=== PATIENT | female | born 1935 | race Caucasian/White ===

== ENCOUNTER 2019-05-26 19:20 | Inpatient (IN) | payer MEDICARE, BC, MEDICAID, OTHER ==
[~2019-05-26] VITALS: Ht 165.1 cm; Wt 86.6 kg
--- NOTE | ~2019-05-26 | CON ---
[address] [address] CONSULTATION Name: ALVINA VILLARREAL Room: [address] IN [facility]#: [id number] Admission: 05/26/19 Attend Phys: Cal Huertas, Discharge: Date of : 35 Report #: [id number] THIS REPORT FOR: //name// CC: LENI physician/PCP Cal Huertas DATE OF SERVICE: 05/27/2019 REQUESTING PHYSICIAN: Cal Huertas MD REASON FOR CONSULTATION: Acute kidney injury. HISTORY OF PRESENT ILLNESS: The patient is an 83-year-old female transferred here from assisted facility due to hypotension. She was found to be also hyperglycemic. Her blood pressure was in 80s and she was admitted to the hospital. She was also found to be in acute kidney injury with serum creatinine of 2.8. Her creatinine was 1.5 several years ago do not know what her creatinine now because in fact the creatinine level could be her baseline. PAST MEDICAL HISTORY: Significant for; 1. Diabetes mellitus type 2. 2. Chronic kidney disease stage 3. 3. Obesity. 4. Medical noncompliance. The patient is noncompliant with her diet. She told me that apparently she notified her doctors that she would not be compliant with the diet. She also has history of hypertension, very mild. 5. She also has right mastectomy and left breast lumpectomy. She has never seen a deicer repairer pneumatic. SOCIAL HISTORY: [facility] resident. No tobacco. No alcohol abuse. FAMILY HISTORY: Noncontributory to her age. MEDICATIONS: Prior to admission reviewed. From my standpoint, she was on lisinopril 2.5 mg daily and she was also on p.r.n. diclofenac. She is receiving also furosemide and metformin. REVIEW OF SYSTEMS: No acute distress. No chest pain, no shortness of breath, no nausea, no vomiting. She states that nursing room ____ right now. PHYSICAL EXAMINATION: GENERAL: Awake, alert, oriented. VITAL SIGNS: Blood pressure 118/55, heart rate 61, afebrile. HEENT: Pupils are round. NECK: [place] [address] CONSULTATION Name: ALVINA VILLARREAL Room: [address] IN [facility]#: [id number] Admission: 05/26/19 Attend Phys: Cal Huertas, Discharge: Date of : 35 Report #: [id number] LUNGS: Fairly clear. CARDIOVASCULAR: Regular rate. ABDOMEN: Soft. LOWER EXTREMITIES: Trace edema. LABORATORY DATA: Report from yesterday evening revealed hemoglobin 9.4, serum sodium 138, potassium 3.8, chloride 101, carbon dioxide 30, BUN 59, creatinine 2.8. Her blood sugar was actually 30. ASSESSMENT: 1. Uncontrolled diabetes with a wild swings in her blood sugar. The patient is noncompliant with her diabetic diet. 2. Acute kidney injury, probably because of hypotension. 3. Chronic kidney disease stage 3, most likely due to diabetic nephropathy. 4. Osteoarthritis. PLAN: 1. I agree with some fluids, but would increase it too much, we will probably stop it for now after current ____ in. 2. Avoid LAISHA inhibitor and angiotensin receptor blockers. 3. We will check her labs in the morning. 4. Obtain a renal ultrasound. 5. Discussed importance of being compliant with diabetic diet. By: [id number] Ventura MD /nt
[~2019-05-26 19:20] MED LIST: ACETAMINOPHEN325 M1; ARTIFICIAL TEA1 EACH; ARTIFICIAL TEAR15 M1 OPHTHALMIC; BACTRIM DS TAB1 EACH PO; BASAGLAR K100 UNIT/1 SUBQ; CALCIUM 500 +1 EAC5 PO; CHILDREN'S ASPI81 M1 PO; CLARITIN10 MG PO; DIFLUCAN200 MG PO; DUONEB 2.5-0.5 M3 ML INH; GABAPENTIN 100100 MG PO; IBUPROFEN 200200 M1 PO; INVANZ1 GM IM; K-DUR 20 MEQ T20 MEQ; KETOCONAZOLE60 GM TOP; LANTUS SOL100 UNIT/1 SUBQ; LASIX 40 MG TAB40 M2 PO; LISINOPRIL2.5 MG PO; MAGNESIUM OXID400 MG PO; METFORMIN HCL500 MG PO; MOM PO; NORCO 5-325 TA1 EACH PO; NOVOLOG100 UNIT/1 SUBQ; NYSTATIN15 G2 TOP; OSELB75 PO; OXYBUTYNIN 5 MG5 M2 PO; OXYBUTYNIN CHLO10 MG PO; OYSTER SHELL 51 EACH; POTASSIUM20 PO; PRANDIN0.5 MG; PRANDIN1 MG PO; ROBITUSSIN100 MG/53 PO; SOY ISOFLAVONES40 MG PO; TAMIFLU75 MG; TRAMADOL 50 MG50 MG PO; TRIAMCINOLONE A80 G2 TOP; TUMS PO; TYLENOL325 MG PO; VITAMIN D3400 UNI1 PO; VITAMIN D3400 UNI2; VOLTAREN100 GM TOP
[2019-05-26 19:26] VITALS: BP 114/34
[2019-05-26] MEDS ORDERED: ZANAFLEX2 M1 PO (19:42)
[2019-05-26] MEDS ORDERED: PROLOPRIM100 MG PO (19:43)
[2019-05-26] MEDS ORDERED: OXYBUTYNIN CHLO10 MG PO (19:43)
[2019-05-26] MEDS ORDERED: FLONASE 0.05%50 MCG NARES (19:44)
[2019-05-26] MEDS ORDERED: MELATONIN3 M1 PO (19:44)
[2019-05-26] MEDS ORDERED: TUSSIN100 MG/5 M PO (19:45)
[2019-05-26] MEDS ORDERED: ZYRTEC10 M5 PO (19:46)
[2019-05-26] MEDS ORDERED: GUAIFENESIN DM1 EACH PO (19:46)
[2019-05-26] MEDS ORDERED: CHILDREN'S ASPI81 MG PO (19:46)
[2019-05-26] MEDS ORDERED: PRANDIN1 MG PO (19:47)
[2019-05-26] MEDS ORDERED: CRANBERRY450 M1 PO (19:47)
[2019-05-26] MEDS ORDERED: MAG-OXIDE400 MG PO (19:48)
[2019-05-26] MEDS ORDERED: TRULICITY0.75 MG/0. SUBQ (19:48)
[2019-05-26] MEDS ORDERED: XARELTO20 MG PO (19:48)
[2019-05-26 20:07] LABS: ABSOLUTE EOSINOPHILS 0.2 thou/uL (0.0-0.7); ABSOLUTE LYMPHOCYTES 1.1 thou/uL (0.8-5.3); ABSOLUTE MONOCYTES 0.5 thou/uL (0.0-1.2); BASOPHILS 0.6 %; EOSINOPHILS 2.6 %; HEMATOCRIT 28.1 % (37.0-47.0); HEMOGLOBIN 9.4 gm/dL (12.0-15.0); LYMPHOCYTES 14.3 %; MCH 31.3 pg (26.0-34.0); MCHC 33.6 g/dL (28.0-37.0); MCV 93.1 fL (80.0-100.0); MONOCYTES 6.1 %; MPV 7.6 fl. (7.2-11.1); NUCLEATED RBCS 0 /100WBC; PLATELET COUNT* 270 thou/uL (150-400); POLYS 76.4 %; RBC 3.02 mil/uL (4.20-5.00); RDW-CV 15.4 % (10.5-14.5); WBC 7.9 thou/uL (4.0-11.0)
[2019-05-26 20:23] LABS: INR 1.4; PROTIME 14.5 Seconds (9.20-11.50)
[2019-05-26 20:30] LABS: CALCIUM 8.7 mg/dL (8.5-10.1); CREATININE 2.8 mg/dL (0.6-1.3); POTASSIUM 3.8 mmol/L (3.5-5.1)
[2019-05-26 20:31] LABS: ALBUMIN 2.9 g/dL (3.4-5.0); TOTAL BILIRUBIN 0.2 mg/dL (<0.1-1.0); TOTAL PROTEIN 6.7 g/dL (6.4-8.2)
[2019-05-26] MEDS ORDERED: ZOFRAN ODT4 MG PO (21:42)
[2019-05-26] MEDS ORDERED: COMPAZINE10 MG PO (21:42)
--- NOTE | 2019-05-26 22:00 | NUR ---
PATIENT REFUSED CASTRO CATHETER PLACEMENT.
[2019-05-26 23:43] LABS: URINE BILIRUBIN NEGATIVE (Negative); URINE BLOOD NEGATIVE (Negative); URINE CLARITY CLEAR; URINE COLOR YELLOW; URINE GLUCOSE-RANDOM NEGATIVE (Negative); URINE KETONES NEGATIVE (Negative); URINE LEUKOCYTES-REFLEX NEGATIVE (Negative); URINE NITRITE-REFLEX NEGATIVE (Negative); URINE PROTEIN NEGATIVE (Negative); URINE UROBILINOGEN 0.2 E.U./dl (0.2-1.0)
[2019-05-27] VITALS (33 sets, daily range): BP systolic 87–149; BP diastolic 37–100
--- NOTE | 2019-05-27 05:00 | NUR ---
PT TO ICU #2 ACCOMPANIED BY RN AND ON THE MONITOR. A$Ox4, COMPLAINS OF BACK PAIN THAT SHE REPORTS IS CHRONIC. HEAT PACK PROVIDED. 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 ON 3L O2 PER NC. BLOOD SUGAR SLOWLY STABILIZING. OTHERWISE UNEVENTFUL NIGHT. PT PREFERS TO LAY ON HER LEFT SIDE AND REFUSES TURNS. CALL LIGHT WITHIN REACH. WILL CONTINUE MONITORING.
--- NOTE | 2019-05-27 10:37 | NUR ---
ISOLATION SARMAD'uriel, COLTON INFECTION CONTROL NURSE NOTIFIED. NO ACTIVE SIGNS OF INFECTION THIS ADMIT.
--- NOTE | 2019-05-27 10:38 | EKG ---
[place] [address] ELECTROCARDIOGRAM REPORT Name: ALVINA VILLARREAL Room: [address] IN ..#: [id number] Admission: 05/26/19 Attend Phys: Cal Huertas, Discharge: Date of : 35 Report #: [id number] THIS REPORT FOR: //name// [facility] ED Test Date: 2019-05-26 Test Time: 19:29:24 Pat Name: ALVINA VILLARREAL Department: Room: [facility] Gender: F Baffle Installer: [place] : 1935 Requested By: Ambreen Gillis Order Number: [id number] MD: Luca Coronado Measurements Intervals [place] Rate: 77 P: -86 MT: 292 QRS: 25 QRSD: 73 T: 42 QT: 464 QTc: 526 Interpretive Statements Sinus or ectopic atrial rhythm Sinus pause Prolonged MT interval Low voltage, extremity leads Prolonged QT interval Compared to ECG 11/20/2014 22:41:32 Sinus pause noted Low QRS voltage now present Prolonged QT interval now present Sinus tachycardia no longer present Electronically Signed On 05-27-2019 10:37:55 COUPON AND BOND COLLECTION CLERK by Luca Coronado [email or web address] <ELECTRONICALLY SIGNED> By: Luca Coronado MD, FACC 05/27/19 1037 28 28 Luca Coronado MD, FAC /EPI
[2019-05-27 11:06] LABS: CALCIUM 8.1 mg/dL (8.5-10.1); CREATININE 2.1 mg/dL (0.6-1.3); POTASSIUM 4.2 mmol/L (3.5-5.1)
--- NOTE | 2019-05-27 12:41 | NUR ---
ICU rounds: 2nd degree heartblock, Cardiology following. Iso for ESBL. Possible med/tele status. Pt is A&O. Resides at [facility]. Pt is wc bound, able to stand and pivot self and propel her wc. Pt is a DNR. Niece is DPOA and in room with Pt. Goal is to return to [facility] at dc. Following.
--- NOTE | 2019-05-27 16:11 | 2DMMODE ---
[place] [address] 2 D/M-MODE ECHOCARDIOGRAM Name: ALVINA VILLARREAL Room: [address] IN [facility]#: [id number] Admission: 05/26/19 Attend Phys: Cal Ruiz Discharge: Date of : 35 Date of Service: 05/27/19 1611 Report #: [id number] THIS REPORT FOR: //name// APPROVED REPORT Study performed: 05/27/2019 14:34:26 EXAM: Comprehensive 2D, Doppler, and color-flow Echocardiogram Patient Location: In-Patient Room #: [facility] Status: routine BSA: 1.94 HR: 67 bpm BP: 130/50 mmHg Rhythm: Atrial Fibrillation Other Information Study Quality: Good Indications Abnormal ECG 2D Dimensions IVSd: 12.23 (7-11mm) LVOT Diam: 19.05 (18-24mm) LVDd: 35.80 mm PWd: 11.19 (7-11mm) Ascending Ao: 32.76 (22-36mm) LVDs: 24.04 (25-40mm) Aortic Root: 34.77 mm Volumes Left Atrial Volume (Systole) LA ESV Index: 28.70 mL/m2 Aortic Valve AoV Peak Son.: 1.39 m/s AO Peak Gr.: 7.70 mmHg LVOT Max P.98 mmHg AO Mean Gr.: 4.50 mmHg LVOT Mean P.05 mmHg LVOT Max V: 1.12 m/s AO V2 VTI: 30.39 cm LVOT Mean V: 0.83 m/s ROSSY (VTI): 2.08 cm2 LVOT V1 VTI: 22.21 cm TDI Lateral E' Son.: 0.13 m/[place] [address] 2 D/M-MODE ECHOCARDIOGRAM Name: ALVINA VILLARREAL Room: [address] IN [facility]#: [id number] Admission: 05/26/19 Attend Phys: Cal Ruiz Discharge: Date of : 35 Date of Service: 05/27/19 1611 Report #: [id number] PV Peak Son.: 1.17 m/s PV Peak Gr.: 5.51 mmHg Tricuspid Valve RAP Estimate: 5.00 mmHg TR Peak Gr.: 30.79 mmHg RVSP: 35.00 mmHg PA Pressure: 35.00 mmHg Left Ventricle The left ventricle is normal size. There is normal LV segmental wall motion. There is normal left ventricular wall thickness. Left ventricular systolic function is normal. The left ventricular ejection fraction is within the normal range. LVEF is 65%. This study is not technically sufficient to allow evaluation of the LV diastolic function due to atrial fibrillation. Right Ventricle The right ventricle is normal size. The right ventricular systolic function is normal. Atria The left atrium size is normal. The right atrium size is normal. Aortic Valve Moderate aortic valve sclerosis. No aortic regurgitation is present. No hemodynamically significant valvular aortic stenosis. Mitral Valve There is mitral annular calcification. Trace mitral regurgitation. No evidence of mitral valve stenosis. Tricuspid Valve The tricuspid valve is normal in structure. Trace tricuspid regurgitation. Mild pulmonary hypertension. Pulmonic Valve The pulmonary valve is normal in structure. There is no pulmonic valvular regurgitation. Great Vessels The aortic root is normal in size. IVC is normal in size and collapses >50% with inspiration. Pericardium There [place] [address] 2 D/M-MODE ECHOCARDIOGRAM Name: ALVINA VILLARREAL Room: [address]#: [id number] Admission: 05/26/19 Attend Phys: Cal Ruiz Discharge: Date of : 35 Date of Service: 05/27/19 1611 Report #: [id number] <Conclusion> The left ventricle is normal size. There is normal left ventricular wall thickness. Left ventricular systolic function is normal. The left ventricular ejection fraction is within the normal range. LVEF is 65%. This study is not technically sufficient to allow evaluation of the LV diastolic function due to atrial fibrillation. The right ventricle is normal size. The left atrium size is normal. Moderate aortic valve sclerosis. No aortic regurgitation is present. No hemodynamically significant valvular aortic stenosis. There is mitral annular calcification. Trace mitral regurgitation. No evidence of mitral valve stenosis. The tricuspid valve is normal in structure. IVC is normal in size and collapses >50% with inspiration. There is no pericardial effusion. There is normal LV segmental wall motion. <ELECTRONICALLY SIGNED> By: Luca Coronado MD, FACC 05/27/19 161 161 161 Luca Coronado MD, FACC /INF
--- NOTE | 2019-05-27 17:49 | NUR ---
PT A&O x4. 2ND DEGREE BLOCK, TYPE 1, VSS. BLOOD SUGAR MAINTAINED. ONE BAG OF NS COMPLETED AT 100 MLS/HR. TOLERATING DIET. INSULIN PER SLIDING SCALE. GETS UP TO THE BSC, ASSIST x1. GOOD URINE OUTPUT.
[2019-05-28 00:42] VITALS: BP 134/41
[2019-05-28 04:00] VITALS: BP 128/43
--- NOTE | 2019-05-28 05:17 | NUR ---
RECEIVED PT FROM ICU PER WHEELCHAIR, AT APPROX 1940 ACCOMPANIED BY CADEN CLEMENTS. PT IS AWAKE AND ORIENTED X4. VSS ON ROOM AIR. WIGS SALESPERSON IN PLACE TRACING SR WITH 2nd deg AVB type I. PT C/O BACK PAIN RELEIVED BY PAIN MEDS GIVEN PER SEP. PT IS ABLE TO SLEEP MOST OF THE NIGHT. CALL LIGHT WITHIN REACH. HOURLY ROUNDING DONE FOR PT SAFETY.
[2019-05-28 05:39] LABS: ALBUMIN 2.5 g/dL (3.4-5.0); CALCIUM 8.4 mg/dL (8.5-10.1); CREATININE 1.6 mg/dL (0.6-1.3); POTASSIUM 4.1 mmol/L (3.5-5.1); TOTAL BILIRUBIN 0.4 mg/dL (<0.1-1.0); TOTAL PROTEIN 5.9 g/dL (6.4-8.2)
[2019-05-28 11:30] VITALS: BP 137/54
[2019-05-28 16:00] VITALS: BP 137/44
--- NOTE | 2019-05-28 17:57 | NUR ---
pt up to chair with all meals, had very large solid bowel movement this afternoon, pain medications given prn as ordered for pain.
[2019-05-28 20:00] VITALS: BP 135/50
[2019-05-29] VITALS: BP 123/42
--- NOTE | 2019-05-29 02:58 | NUR ---
ASSUMED PT CARE AT APPROX 1930. PT IS AWAKE AND ORIENTED X4. VSS ON ROOM AIR. REMOTE COMPUTER TERMINAL OPERATOR IN PLACE TRACING SR w/ 1st DEG AVB. ASSESSMENT DONE AND CHARTED. PT C/O BACK PAIN RELEIVED BY PAIN MEDS GIVEN PER SEP. CALL LIGHT WITHIN REACH. FALL PRECAUTIONS IN PLACE. HOURLY ROUNDING DONE FOR PT SAFETY.
[2019-05-29 04:00] VITALS: BP 117/40
[2019-05-29 08:00] VITALS: BP 132/74
[2019-05-29 10:57] LABS: HEMATOCRIT 25.2 % (37.0-47.0); HEMOGLOBIN 8.2 gm/dL (12.0-15.0); MCH 30.9 pg (26.0-34.0); MCHC 32.7 g/dL (28.0-37.0); MCV 94.3 fL (80.0-100.0); RBC 2.67 mil/uL (4.20-5.00); RDW-CV 15.7 % (10.5-14.5); WBC 7.9 thou/uL (4.0-11.0)
[2019-05-29 11:08] LABS: CALCIUM 8.6 mg/dL (8.5-10.1); CREATININE 1.4 mg/dL (0.6-1.3)
[2019-05-29 12:00] VITALS: BP 133/56
--- NOTE | 2019-05-29 13:15 | NUR ---
pt discharing back to [facility] facility. cm set up transportation through [facility] to arrive at 3p (time given by nurse). pt niece was present and notified by pt's nurse that pt is d/c'g back to [facility] today. cm provide pt's nurse the number to call report - [phone].
[2019-05-29 15:21] VITALS: BP 133/56
--- NOTE | 2019-05-29 16:00 | NUR ---
REPORT CALLED TO RUBEN AT [facility]. PT LEFT VIA WC WITH ALL BELONGINGS
== END 2019-05-29 16:00 | DRG 177 ==
LOC: M.ERS 19:20 → M.TBA-ER 22:18 → M.ICU 22:18 → M.2W 05-27 19:40
PROVIDERS: Emergency Medicine; Internal Medicine; ADMIT Family Medicine
DX: J15.6 Pneumonia due to other Gram-negative bacteria (principal); E11.10 Type 2 diabetes mellitus with ketoacidosis without coma; N17.9 Acute kidney failure, unspecified; I13.0 Hypertensive heart and chronic kidney disease with heart failure and stage 1 through stage 4 chronic kidney disease, or unspecified chronic kidney disease; I44.1 Atrioventricular block, second degree; I95.9 Hypotension, unspecified; M19.90 Unspecified osteoarthritis, unspecified site; E11.649 Type 2 diabetes mellitus with hypoglycemia without coma; E11.22 Type 2 diabetes mellitus with diabetic chronic kidney disease; N18.3 Chronic kidney disease, stage 3 (moderate); E66.9 Obesity, unspecified; I50.9 Heart failure, unspecified; Z91.14 Patient's other noncompliance with medication regimen; Z79.4 Long term (current) use of insulin; Z90.710 Acquired absence of both cervix and uterus; Z90.49 Acquired absence of other specified parts of digestive tract; Z90.11 Acquired absence of right breast and nipple; Z68.31 Body mass index [BMI] 31.0-31.9, adult; Z87.891 Personal history of nicotine dependence

== ENCOUNTER 2019-06-10 14:49 | Inpatient (IN) | payer MEDICARE, BC, MEDICAID, OTHER ==
[~2019-06-10] VITALS: Ht 165.1 cm; Wt 77.7 kg
[~2019-06-10 14:49] MED LIST changes: +CHILDREN'S ASPI81 MG PO; +COMPAZINE10 MG PO; +CRANBERRY450 M1 PO; +FLONASE 0.05%50 MCG NARES; +GUAIFENESIN DM1 EACH PO; +MAG-OXIDE400 MG PO; +MELATONIN3 M1 PO; +PROLOPRIM100 MG PO; +TRULICITY0.75 MG/0. SUBQ; +TUSSIN100 MG/5 M PO; +XARELTO20 MG PO; +ZANAFLEX2 M1 PO; +ZOFRAN ODT4 MG PO; +ZYRTEC10 M5 PO
[2019-06-10 14:50] VITALS: BP 152/69
[2019-06-10] MEDS ORDERED: VITAMIN D32000 UNIT PO (14:58)
[2019-06-10] MEDS ORDERED: BISACODYL10 MG RECTAL (15:00)
[2019-06-10] MEDS ORDERED: LASIX 80 MG TAB80 MG PO (15:01)
[2019-06-10] MEDS ORDERED: TOLNAFTATE TOP (15:06)
[2019-06-10] MEDS ORDERED: OMEPRAZOLE 20 M20 M1 PO (15:08)
[2019-06-10] MEDS ORDERED: LASIX 40 MG TAB40 MG PO (15:10)
[2019-06-10] MEDS ORDERED: PROLOPRIM100 MG PO (15:11)
[2019-06-10] MEDS ORDERED: CRANBERRY450 M2 PO (15:13)
[2019-06-10 15:39] LABS: ABSOLUTE BASOPHILS 0.1 thou/uL (0.0-0.2); ABSOLUTE EOSINOPHILS 0.2 thou/uL (0.0-0.7); ABSOLUTE LYMPHOCYTES 1.2 thou/uL (0.8-5.3); ABSOLUTE MONOCYTES 0.5 thou/uL (0.0-1.2); ABSOLUTE NEUTROPHILS 7.1 thou/uL (1.6-8.1); BASOPHILS 0.7 %; EOSINOPHILS 2.4 %; HEMATOCRIT 32.7 % (37.0-47.0); HEMOGLOBIN 10.9 gm/dL (12.0-15.0); LYMPHOCYTES 13.1 %; MCH 30.8 pg (26.0-34.0); MCHC 33.3 g/dL (28.0-37.0); MCV 92.3 fL (80.0-100.0); MONOCYTES 5.1 %; MPV 7.1 fl. (7.2-11.1); NUCLEATED RBCS 0 /100WBC; PLATELET COUNT* 390 thou/uL (150-400); POLYS 78.7 %; RBC 3.54 mil/uL (4.20-5.00); RDW-CV 15.4 % (10.5-14.5)
[2019-06-10 15:45] LABS: APTT 46.5 Seconds (25.0-31.3); CALCIUM 8.6 mg/dL (8.5-10.1); CREATININE 1.9 mg/dL (0.6-1.3); INR 1.3; POTASSIUM 4.9 mmol/L (3.5-5.1); PROTIME 13.6 Seconds (9.20-11.50)
[2019-06-10 16:02] LABS: ALBUMIN 3.1 g/dL (3.4-5.0); TOTAL BILIRUBIN 0.3 mg/dL (<0.1-1.0); TOTAL PROTEIN 7.3 g/dL (6.4-8.2)
[2019-06-10 16:52] LABS: URINE BILIRUBIN NEGATIVE (Negative); URINE BLOOD 1+ (Negative); URINE CLARITY CLEAR; URINE COLOR YELLOW; URINE GLUCOSE-RANDOM NEGATIVE (Negative); URINE KETONES NEGATIVE (Negative); URINE NITRITE-REFLEX NEGATIVE (Negative); URINE PROTEIN NEGATIVE (Negative); URINE SPECIFIC GRAVITY 1.015 (1.005-1.030); URINE UROBILINOGEN 0.2 E.U./dl (0.2-1.0)
[2019-06-10 16:53] LABS: URINE LEUKOCYTES-REFLEX 2+ (Negative)
[2019-06-10 17:03] LABS: BACTERIA-REFLEX >30 Many /HPF (None Seen); HYALINE CASTS 0-3 Few /LPF (None Seen); MUCUS None Seen strn/LPF (None Seen); SQUAMOUS 4-10 Moderate /LPF (0-3); URINE WBC-REFLEX 6-15 Few /HPF (0-5)
[2019-06-10 17:04] LABS: CRYSTALS None Seen /LPF (None Seen); URINE RBC 0-2 Rare /HPF (0-2)
[2019-06-10 18:54] VITALS: BP 145/85
[2019-06-10 21:17] VITALS: BP 139/49
[2019-06-11] VITALS: BP 121/65
[2019-06-11 04:00] VITALS: BP 151/62
[2019-06-11 07:40] VITALS: BP 173/61
--- NOTE | 2019-06-11 10:29 | EKG ---
[place] [address] ELECTROCARDIOGRAM REPORT Name: ALVINA VILLARREAL Room: [address] IN [facility]#: [id number] Admission: 06/10/19 Attend Phys: Adarsh Sage MD Discharge: Date of : 35 Report #: [id number] THIS REPORT FOR: //name// [facility] ED Test Date: 2019-06-10 Test Time: 15:04:51 Pat Name: ALVINA VILLARREAL Department: Room: [facility] Gender: F Processing Talc And Borate Supervisor: MUSA : 1935 Requested By: Sudarshan Henderson Order Number: [id number] MD: Luca Coronado Measurements Intervals [place] Rate: 73 P: -37 NJ: 308 QRS: 4 QRSD: 76 T: 38 QT: 414 QTc: 457 Interpretive Statements Sinus rhythm Prolonged [place] interval Compared to ECG 05/26/2019 19:29:24 Ectopic atrial rhythm no longer present Sinus pause or arrest no longer present Prolonged QT interval no longer present Electronically Signed On 06-11-2019 10:29:05 CHIEF DEPUTY CORONER by Luca Coronado [email or web address] <ELECTRONICALLY SIGNED> By: Luca Coronado MD, FACC 06/11/19 1029 1504 1504 Luca Coronado MD, [facility] /EPI
[2019-06-11 12:00] VITALS: BP 129/54
[2019-06-11 16:04] VITALS: BP 107/40
[2019-06-11 20:00] VITALS: BP 99/55
[2019-06-12] VITALS: BP 134/53
[2019-06-12 04:00] VITALS: BP 164/65
[2019-06-12 05:00] LABS: HEMATOCRIT 29.9 % (37.0-47.0); HEMOGLOBIN 9.7 gm/dL (12.0-15.0); MCH 29.8 pg (26.0-34.0); MCHC 32.4 g/dL (28.0-37.0); MCV 92.1 fL (80.0-100.0); MPV 8.2 fl. (7.2-11.1); RBC 3.24 mil/uL (4.20-5.00); RDW-CV 15.3 % (10.5-14.5); WBC 7.1 thou/uL (4.0-11.0)
[2019-06-12 05:17] LABS: CALCIUM 8.5 mg/dL (8.5-10.1); CREATININE 1.7 mg/dL (0.6-1.3); POTASSIUM 4.7 mmol/L (3.5-5.1)
[2019-06-12 08:00] VITALS: BP 138/66
[2019-06-12 11:39] VITALS: BP 142/50
[2019-06-12 16:53] VITALS: BP 97/49
[2019-06-12 20:00] VITALS: BP 137/55
[2019-06-13] VITALS: BP 98/56
[2019-06-13 04:00] VITALS: BP 138/52
[2019-06-13 05:39] LABS: CALCIUM 8.9 mg/dL (8.5-10.1); CREATININE 1.7 mg/dL (0.6-1.3); MAGNESIUM 2.6 mg/dL (1.8-2.4); POTASSIUM 4.3 mmol/L (3.5-5.1)
[2019-06-13 07:45] VITALS: BP 124/35
[2019-06-13 12:00] VITALS: BP 113/44
[2019-06-13 16:00] VITALS: BP 124/98
[2019-06-13 20:00] VITALS: BP 133/59
[2019-06-14 04:00] VITALS: BP 110/62
[2019-06-14 08:00] VITALS: BP 112/70
[2019-06-14 11:44] VITALS: BP 121/56
[2019-06-14 16:49] VITALS: BP 152/59
[2019-06-14 20:00] VITALS: BP 151/65
[2019-06-15] VITALS: BP 130/50
[2019-06-15 04:00] VITALS: BP 149/57
[2019-06-15 08:00] VITALS: BP 144/64
[2019-06-15 16:29] VITALS: BP 126/66
[2019-06-15 20:00] VITALS: BP 144/49
[2019-06-16 08:03] VITALS: BP 151/77
[2019-06-16 15:47] VITALS: BP 156/77
[2019-06-16 20:43] VITALS: BP 130/73
[2019-06-17 07:50] VITALS: BP 164/79
[2019-06-17] MEDS ORDERED: SIMETHICON CHEW80 M1 PO (07:51)
[2019-06-17] MEDS ORDERED: TRAMADOL 50 MG50 MG PO (07:51)
[2019-06-17] MEDS ORDERED: MIRALAX17 GM PO (07:51)
[2019-06-17] MEDS ORDERED: DOK PLUS TABLE1 EACH PO (07:51)
[2019-06-17] MEDS ORDERED: PAIN RELIEVER500 MG PO (07:51)
[2019-06-17] MEDS ORDERED: GABAPENTIN 100100 MG PO (07:51)
[2019-06-17] MEDS ORDERED: LIDOPATCH1 EACH TOP (07:51)
[2019-06-17] MEDS ORDERED: CALCIUM + D3 E1 EACH PO (07:56)
[2019-06-17] MEDS ORDERED: FOSAMAX 70 MG T70 MG PO (07:56)
[2019-06-17] MEDS ORDERED: PREMARIN30 GM TOP (08:01)
[2019-06-17 11:29] VITALS: BP 164/79
== END 2019-06-17 14:25 | DRG 682 ==
LOC: M.ERS 14:49 → M.TBA-ER 17:26 → M.2W 17:26 → M.ORTHSURG 06-15 14:03
PROVIDERS: Family Medicine; ADMIT Internal Medicine
DX: N17.0 Acute kidney failure with tubular necrosis (principal); G93.41 Metabolic encephalopathy; N39.0 Urinary tract infection, site not specified; M48.54XA Collapsed vertebra, not elsewhere classified, thoracic region, initial encounter for fracture; E44.1 Mild protein-calorie malnutrition; B96.4 Proteus (mirabilis) (morganii) as the cause of diseases classified elsewhere; K74.60 Unspecified cirrhosis of liver; F32.9 Major depressive disorder, single episode, unspecified; E11.65 Type 2 diabetes mellitus with hyperglycemia; K59.09 Other constipation; N18.3 Chronic kidney disease, stage 3 (moderate); E11.22 Type 2 diabetes mellitus with diabetic chronic kidney disease; M19.90 Unspecified osteoarthritis, unspecified site; G89.4 Chronic pain syndrome; F03.90 Unspecified dementia, unspecified severity, without behavioral disturbance, psychotic disturbance, mood disturbance, and anxiety; I44.1 Atrioventricular block, second degree; E86.0 Dehydration; Z79.4 Long term (current) use of insulin; Z90.11 Acquired absence of right breast and nipple; Z90.710 Acquired absence of both cervix and uterus; Z90.49 Acquired absence of other specified parts of digestive tract; Z68.28 Body mass index [BMI] 28.0-28.9, adult

== ENCOUNTER 2019-11-16 05:18 | Inpatient (IN) | payer MEDICARE, BC, MEDICAID, OTHER ==
[2019-11-15 20:00] VITALS: BP 121/60
[~2019-11-16] VITALS: Ht 152.4 cm; Wt 68.5 kg
[~2019-11-16 05:18] MED LIST changes: +BISACODYL10 MG RECTAL; +CALCIUM + D3 E1 EACH PO; +CRANBERRY450 M2 PO; +DOK PLUS TABLE1 EACH PO; +FOSAMAX 70 MG T70 MG PO; +LASIX 40 MG TAB40 MG PO; +LASIX 80 MG TAB80 MG PO; +LIDOPATCH1 EACH TOP; +MIRALAX17 GM PO; +OMEPRAZOLE 20 M20 M1 PO; +PAIN RELIEVER500 MG PO; +PREMARIN30 GM TOP; +SIMETHICON CHEW80 M1 PO; +TOLNAFTATE TOP; +VITAMIN D32000 UNIT PO
[2019-11-16 05:20] VITALS: BP 155/80
[2019-11-16 05:45] LABS: URINE BILIRUBIN NEGATIVE (Negative); URINE BLOOD NEGATIVE (Negative); URINE CLARITY CLEAR; URINE COLOR YELLOW; URINE GLUCOSE-RANDOM NEGATIVE (Negative); URINE KETONES NEGATIVE (Negative); URINE LEUKOCYTES-REFLEX 1+ (Negative); URINE NITRITE-REFLEX NEGATIVE (Negative); URINE PROTEIN TRACE (Negative); URINE SPECIFIC GRAVITY 1.015 (1.005-1.030); URINE UROBILINOGEN 0.2 E.U./dl (0.2-1.0)
[2019-11-16 05:54] LABS: HEMATOCRIT 36.7 % (37.0-47.0); HEMOGLOBIN 11.9 gm/dL (12.0-15.0); MCH 27.7 pg (26.0-34.0); MCHC 32.4 g/dL (28.0-37.0); MCV 85.4 fL (80.0-100.0); NUCLEATED RBCS 0 /100WBC; PLATELET COUNT* 234 thou/uL (150-400); RDW-CV 17.7 % (10.5-14.5); WBC 7.8 thou/uL (4.0-11.0)
[2019-11-16] MEDS ORDERED: ELIQUIS5 MG PO (05:57)
[2019-11-16] MEDS ORDERED: CYMBALTA60 MG PO (05:57)
[2019-11-16 06:05] LABS: CALCIUM 8.5 mg/dL (8.5-10.1); CREATININE 0.9 mg/dL (0.6-1.3); POTASSIUM 3.9 mmol/L (3.5-5.1)
[2019-11-16 06:07] LABS: SQUAMOUS 0-3 Few /LPF (0-3)
[2019-11-16 06:08] LABS: CASTS None Seen /LPF (None Seen); CRYSTALS None Seen /LPF (None Seen); MUCUS 0-3 Light strn/LPF (None Seen); URINE RBC 0-2 Rare /HPF (0-2)
[2019-11-16 06:08] LABS: INR 1.1; PROTIME 11.4 Seconds (9.20-11.50)
[2019-11-16 06:21] LABS: ALBUMIN 3.1 g/dL (3.4-5.0); MAGNESIUM 1.4 mg/dL (1.8-2.4); TOTAL BILIRUBIN 0.4 mg/dL (<0.1-1.0)
[2019-11-16 06:50] LABS: ABSOLUTE BASOPHILS 0.1 thou/uL (0.0-0.2); ABSOLUTE LYMPHOCYTES 0.5 thou/uL (0.8-5.3); ABSOLUTE MONOCYTES 0.2 thou/uL (0.0-1.2); ABSOLUTE NEUTROPHILS 6.9 thou/uL (1.6-8.1); ANISOCYTOSIS 1+; PLATELET ESTIMATE ADEQUATE; POIKILOCYTOSIS 1+
--- NOTE | 2019-11-16 08:04 | NUR ---
REPORT TAKEN FROM ZIPPER CUTTER AT 0715. PATIENT IS CONFUSED AND THAT IS BELIEVED TO BE BASELINE. LESTER FROM INFUSION WAS ABLE TO PLACE A LINE AND SHE IS OFF THE UNIT FOR AN XRAY AND A CT. WILL HANG ANTIBIOTICS WHEN SHE RETURNS. DR ROSALES CAME BY AND SHE IS BEING ADMITTED.
[2019-11-16 11:05] VITALS: BP 148/62
[2019-11-16 11:55] VITALS: BP 102/60
--- NOTE | 2019-11-16 15:00 | EKG ---
[place] [address] ELECTROCARDIOGRAM REPORT Name: ALVINA VILLARREAL Room: [address] IN [facility]#: [id number] Admission: 11/16/19 Attend Phys: Adarsh Sage, Discharge: Date of : 35 Date of Service: 11/16/19 0653 Report #: [id number] THIS REPORT FOR: //name// [facility] ED Test Date: 2019-11-16 Test Time: 06:53:56 Pat Name: ALVINA VILLARREAL Department: Room: [address] Gender: F Marine Steward: JAMSHID : 1935 Requested By: Ambreen Gillis Order Number: [id number] Elizabeth MD: Luca Coronado Measurements Intervals [place] Rate: 93 P: -4 AK: 256 QRS: 55 QRSD: 85 T: 50 QT: 378 QTc: 471 Interpretive Statements Sinus rhythm Prolonged [place] interval Baseline wander in lead(s) I,III,aVL,V1 Compared to ECG 06/10/2019 15:04:51 No significant changes Electronically Signed On 11-16-2019 14:58:59 CDT by Luca Coronado [email or web address] <ELECTRONICALLY SIGNED> By: Luca Coronado MD, FAC 11/16/19 1458 0653 0653 Luca Coronado MD, FAC /EPI
--- NOTE | 2019-11-16 15:00 | EKG ---
[place] [address] ELECTROCARDIOGRAM REPORT Name: ALVINA VILLARREAL Room: [address] IN [facility]#: [id number] Admission: 11/16/19 Attend Phys: Adarsh Sage, Discharge: Date of : 35 Date of Service: 11/16/19 0529 Report #: [id number] THIS REPORT FOR: //name// [facility] ED Test Date: 2019-11-16 Test Time: 05:29:11 Pat Name: ALVINA VILLARREAL Department: Room: [facility] Gender: F Casino Cashier Manager: REECE : 1935 Requested By: Ambreen Gillis Order Number: [id number] MD: Luca Coronado Measurements Intervals [place] Rate: 96 P: [place]: QRS: 39 QRSD: 81 T: 64 QT: 351 QTc: 444 Interpretive Statements Sinus rhythm with first-degree AV block Nonspecific T abnormalities, lateral leads Baseline wander in lead(s) V1 Compared to ECG 06/10/2019 15:04:51 T-wave abnormality now present Electronically Signed On 11-16-2019 14:58:48 CDT by Luca Coronado [email or web address] <ELECTRONICALLY SIGNED> By: Luca Coronado MD, [facility] 11/16/19 1458 0529 0529 Luca Coronado MD, FAC /EPI
[2019-11-16 16:16] VITALS: BP 97/46
--- NOTE | 2019-11-16 17:40 | NUR ---
PT REMAINED ALERT TO SELF. FALL RISK PRECAUTIONS IN PLACE. ON TELE MONITOR. HOURLY ROUNDING COMPLETED. WILL CONTINUE TO MONITOR.
[2019-11-17 00:03] VITALS: BP 112/61
[2019-11-17 04:00] VITALS: BP 102/53
[2019-11-17 04:28] LABS: ABSOLUTE EOSINOPHILS 0.1 thou/uL (0.0-0.7); ABSOLUTE LYMPHOCYTES 1.3 thou/uL (0.8-5.3); ABSOLUTE MONOCYTES 0.5 thou/uL (0.0-1.2); ABSOLUTE NEUTROPHILS 3.7 thou/uL (1.6-8.1); BASOPHILS 0.7 %; EOSINOPHILS 2.5 %; HEMATOCRIT 31.9 % (37.0-47.0); HEMOGLOBIN 10.5 gm/dL (12.0-15.0); LYMPHOCYTES 22.9 %; MCH 27.9 pg (26.0-34.0); MCHC 32.9 g/dL (28.0-37.0); MCV 84.7 fL (80.0-100.0); MONOCYTES 9.1 %; MPV 8.3 fl. (7.2-11.1); NUCLEATED RBCS 0 /100WBC; PLATELET COUNT* 239 thou/uL (150-400); POLYS 64.8 %; RBC 3.76 mil/uL (4.20-5.00); RDW-CV 16.9 % (10.5-14.5); WBC 5.8 thou/uL (4.0-11.0)
[2019-11-17 04:40] LABS: CALCIUM 8.1 mg/dL (8.5-10.1); CREATININE 0.9 mg/dL (0.6-1.3); POTASSIUM 3.7 mmol/L (3.5-5.1)
[2019-11-17 08:00] VITALS: BP 122/63
--- NOTE | 2019-11-17 12:33 | NUR ---
Pt lives at [facility]. SW called admissions at [facility] to discuss dc planning. SW to fax updates to [facility] admissions in preparation for dc. SW to continue to follow to assist with safe dc planning.
--- NOTE | 2019-11-17 19:48 | NUR ---
REMAINS ALERT AND ORIENTED WITH EPISODES OF CONFUSION. RESPIRATIONS EVEN AND UNLABORED ON ROOM AIR. DENIES PAIN. MEDICATED WITH PRN PAIN MED PER MD ORDER. UP TO BSC WITH STANDBY ASSIST. FACIAL SWELLING AND BRUISING PRESENT. BED AND CHAIR ALARMS REMAIN SET ON EXITING MODE FOR SAFETY. CALL FIGUEROA AND PERSONAL ITEMS WITHIN REACH. NSG WILL CONTINUE TO ASSESS.
[2019-11-17 20:00] VITALS: BP 130/67
[2019-11-18] VITALS: BP 116/54
[2019-11-18 04:00] VITALS: BP 112/48
--- NOTE | 2019-11-18 07:37 | NUR ---
ASSUMED CARE OF PT AFTER REPORT AT 2330. PT A&OX3. NOT ORIENTED TO TIME. CONFUSED & FORGETFUL AT TIMES. THIS NURSE AGREES WITH PREVIOUS FINANCIAL MANAGEMENT CONSULTANT. PT DENIES ANY PAIN. PT ABLE TO SLEEP WELL ON BED. CALL LIGHT WITHIN REACH.
[2019-11-18 08:00] VITALS: BP 94/55
[2019-11-18 10:20] VITALS: BP 94/55
--- NOTE | 2019-11-18 11:00 | NUR ---
ASSUMED PT CARE REPORT RECEIVED FROM NURSE PT IS AOX4. ON RA. VSS. NO COMPLAINT. PT ATE [facility]. ACCUCHECK. MEDICNIE GIVEN. DISCHARGE ORDERED. WILL CONTINUE TO MONITOR PT. CALL LIGHT WITHIN REACH
[2019-11-18] MEDS ORDERED: CEFUROXIME500 MG PO (11:14)
--- NOTE | 2019-11-18 11:27 | NUR ---
Pt is discharging back to [facility] today. Faxed dc orders. Chart copied. Nurse report is [phone]. CM updated Pt's niece. Facility to picking crew supervisor at 1pm
[2019-11-18 12:00] VITALS: BP 112/39
--- NOTE | 2019-11-18 12:28 | NUR ---
DISCHARGE ORDERED. IV LINE REMOVED. HEART MONITOR RETRIEVED. SKIN TEAR PICTURE TAKEN. PT IS TO GO TO [facility]
--- NOTE | 2019-11-18 13:26 | NUR ---
PT LEFT UNIT AT 1320 ACCOMPANIED BY NURSE TECH. BELONGINGS BROUGHT ALONG
--- NOTE | 2019-11-18 13:31 | NUR ---
REPORT CALLED AND GIVEN TO NURSE FROM [facility]
--- NOTE | 2019-11-18 17:30 | EKG ---
[place] [address] ELECTROCARDIOGRAM REPORT Name: ALVINA VILLARREAL Room: [address] IN [facility]#: [id number] Admission: 11/16/19 Attend Phys: Adarsh Sage, Discharge: 11/18/19 Date of : 35 Date of Service: 11/18/19 0319 Report #: [id number] THIS REPORT FOR: //name// [facility] Test Date: 2019-11-18 Test Time: 03:19:13 Pat Name: ALVINA VILLARREAL Department: Room: [address] Gender: F Front Office Assistant: GAUDENCIO : 1935 Requested By: Adarsh Sage Order Number: [id number] MD: Joel Browning Measurements Intervals [place] Rate: 84 P: [place]: QRS: 54 QRSD: 84 T: 67 QT: 417 QTc: 493 Interpretive Statements Atrial fibrillation Low voltage, extremity leads Borderline prolonged QT interval Compared to ECG 11/16/2019 06:53:56 Low QRS voltage now present Sinus rhythm no longer present First degree AV block no longer present Electronically Signed On 11-18-2019 17:29:07 CDT by Joel Browning [email or web address] <ELECTRONICALLY SIGNED> By: Joel Browning MD, FACC 11/18/19 1729 8 8 Joel Browning MD, FACC /EPI
== END 2019-11-18 13:20 | DRG 177 ==
LOC: M.ERS 05:18 → M.TBA-ER 07:28 → M.2W 07:28
PROVIDERS: Emergency Medicine; ADMIT Internal Medicine
DX: J69.0 Pneumonitis due to inhalation of food and vomit (principal); G93.41 Metabolic encephalopathy; N30.00 Acute cystitis without hematuria; S00.83XA Contusion of other part of head, initial encounter; E11.9 Type 2 diabetes mellitus without complications; M19.90 Unspecified osteoarthritis, unspecified site; I48.91 Unspecified atrial fibrillation; F03.90 Unspecified dementia, unspecified severity, without behavioral disturbance, psychotic disturbance, mood disturbance, and anxiety; Z66 Do not resuscitate; W18.39XA Other fall on same level, initial encounter; Z90.710 Acquired absence of both cervix and uterus; Z90.49 Acquired absence of other specified parts of digestive tract; Z90.11 Acquired absence of right breast and nipple; Z79.899 Other long term (current) drug therapy; Z79.01 Long term (current) use of anticoagulants; Z79.4 Long term (current) use of insulin; Z87.891 Personal history of nicotine dependence; Y93.89 Activity, other specified; Y92.89 Other specified places as the place of occurrence of the external cause; Y99.8 Other external cause status